=== PATIENT | female | born 1970 | race Caucasian/White ===

== ENCOUNTER 2018-02-03 10:16 | Emergency (ER) | payer OTHER ==
[~2018-02-03] VITALS: Ht 157.5 cm; Wt 75.8 kg
[2018-02-03] MEDS ORDERED: MOBIC15 MG PO (10:22)
[2018-02-03] MEDS ORDERED: BCP (10:23)
[2018-02-03] MEDS ORDERED: AUGMENTIN 875-1 EACH PO (10:38)
[2018-02-03 11:11] VITALS: BP 133/89
== END 2018-02-03 11:12 | disposition home or self-care (01) ==
LOC: M.ERS 10:16
DX: S81.851A Open bite, right lower leg, initial encounter (principal); G89.29 Other chronic pain; M54.9 Dorsalgia, unspecified; W54.0XXA Bitten by dog, initial encounter; Y93.89 Activity, other specified; Y92.89 Other specified places as the place of occurrence of the external cause; Y99.8 Other external cause status